=== PATIENT | female | born 1990 | race Caucasian/White ===

== ENCOUNTER 2018-09-11 11:33 | Inpatient (IN) | payer MEDICAID ==
[~2018-09-11] VITALS: Ht 180.3 cm; Wt 101.4 kg
[2018-09-11 11:46] VITALS: BP 117/68
[2018-09-11 12:20] VITALS: BP 117/68
[2018-09-11] MEDS ORDERED: MAGNESIUM SULF. PMX 20GM/500ML 500 ML IV ONE ×2 (12:59→19:54)
[2018-09-11] MEDS ORDERED: BETAMETHASONE 6 MG/ML, 5ML IM ONE (12:59)
[2018-09-11] MEDS ORDERED: MAGNESIUM SULFATE PMX 4GM/100M 100 ML IVPB SCH (13:00)
[2018-09-11] MEDS ORDERED: CALCIUM GLUCONATE 4.6 MEQ/10 ML IV PRN (13:00)
[2018-09-11] MEDS ORDERED: AMPICILLIN 2 GM in SODIUM CHLORIDE 0.9% 100 ML IVPB STA (13:08)
[2018-09-11] MEDS ORDERED: MAGNESIUM SULF. PMX 20GM/500ML 500 ML IV SCH ×2 (13:09→13:20)
[2018-09-11 13:10] LABS: MICROSCOPIC AUTO
[2018-09-11] MEDS: BETAMETHASONE 6 MG/ML, 5ML IM SCH (13:21)
[2018-09-11] MEDS ORDERED: MAGNESIUM SULFATE 6 GM in SODIUM CHLORIDE 0.9% 150 ML IV ONE (13:30)
[2018-09-11 14:03] LABS: BASOPHILS # (AUTO) 0.03 x10^3/uL (0-0.1); BASOPHILS % (AUTO) 0 % (0-1); EOSINOPHILS # (AUTO) 0.08 x10^3/uL (0-0.4); EOSINOPHILS % (AUTO) 1 % (1-7); LYMPHOCYTES # (AUTO) 1.78 x10^3/uL (1-3.4); LYMPHOCYTES % (AUTO) 20 % (22-44); MD NO; MEAN CORPUSCULAR HEMOGLOBIN 31.1 pg (27.0-34.8); MEAN CORPUSCULAR HGB CONC 33.9 g/dL (32.4-35.8); MEAN CORPUSCULAR VOLUME 91.8 fL (80-100); MEAN PLATELET VOLUME 8.1 fL (7.4-10.4); MONOCYTES # (AUTO) 0.55 x10^3/uL (0.2-0.8); MONOCYTES % (AUTO) 6 % (2-9); NEUTROPHILS # (AUTO) 6.39 x10^3/uL (1.8-6.8); NEUTROPHILS % (AUTO) 72 % (42-75); PLATELET COUNT 228 x10^3/uL (130-400); RED BLOOD COUNT 4.12 x10^6/uL (3.82-5.3); RED CELL DISTRIBUTION WIDTH 12.7 % (9.6-15.2)
[2018-09-11 14:13] LABS: ALANINE AMINOTRANSFERASE 24 U/L (12-78); ALBUMIN 2.7 g/dL (3.4-5.0); ANION GAP 9 mmol/L (5-15); CALCIUM 8.4 mg/dL (8.5-10.1); CHLORIDE 106 mmol/L (98-107); CREATININE 0.64 mg/dL (0.55-1.02)
[2018-09-11 14:15] LABS: ALKALINE PHOSPHATASE 102 U/L (45-117); BILIRUBIN,TOTAL 0.3 mg/dL (0.2-1.0); TOTAL PROTEIN 6.6 g/dL (6.4-8.2)
[2018-09-11 15:07] VITALS: BP 89/51
[2018-09-11] MEDS: AMPICILLIN 1 GM in SODIUM CHLORIDE 0.9% 100 ML IVPB SCH ×2 (17:28→21:43)
[2018-09-11] MEDS ORDERED: PRENATAL VIT/IRON/FA 1 EACH TABLET ONE (19:57)
[2018-09-11] MEDS ORDERED: DOCUSATE 100 MG CAPSULE ONE (19:57)
[2018-09-11] MEDS: PRENATAL VIT/IRON/FA 1 EACH TABLET PO SCH (20:24)
[2018-09-11] MEDS: MAGNESIUM SULF. PMX 20GM/500ML 500 ML IV SCH (20:28)
[2018-09-12] MEDS: LACTATED RINGERS 1,000 ML IV PRN ×2 (00:46→16:26)
[2018-09-12] MEDS: AMPICILLIN 1 GM in SODIUM CHLORIDE 0.9% 100 ML IVPB SCH ×6 (01:42→22:11)
[2018-09-12] MEDS ORDERED: MAGNESIUM SULF. PMX 20GM/500ML 500 ML IV ONE (06:31)
[2018-09-12] MEDS: MAGNESIUM SULF. PMX 20GM/500ML 500 ML IV SCH (06:40)
[2018-09-12 09:30] VITALS: BP 129/69
[2018-09-12] MEDS ORDERED: DOCUSATE 100 MG CAPSULE ONE ×3 (09:44→22:09)
[2018-09-12] MEDS ORDERED: PRENATAL VIT/IRON/FA 1 EACH TABLET ONE (09:44)
[2018-09-12] MEDS ORDERED: ACETAMINOPHEN 500 MG TABLET ONE (09:45)
[2018-09-12] MEDS: PRENATAL VIT/IRON/FA 1 EACH TABLET PO SCH (09:47)
[2018-09-12] MEDS: DOCUSATE 100 MG CAPSULE PO PRN ×2 (09:47→22:11)
[2018-09-12] MEDS ORDERED: ACETAMINOPHEN 500 MG TABLET PO PRN (10:00)
[2018-09-12] MEDS ORDERED: MAGNESIUM SULFATE PMX 4GM/100M 100 ML IVPB ONE (13:00)
[2018-09-12] MEDS: BETAMETHASONE 6 MG/ML, 5ML IM SCH (13:30)
[2018-09-12 20:00] VITALS: BP 117/67
[2018-09-13] MEDS: AMPICILLIN 1 GM in SODIUM CHLORIDE 0.9% 100 ML IVPB SCH ×3 (01:58→09:55)
[2018-09-13] MEDS ORDERED: MAGNESIUM SULF. PMX 20GM/500ML 500 ML IV ONE (02:33)
[2018-09-13] MEDS: LACTATED RINGERS 1,000 ML IV PRN (08:03)
[2018-09-13 08:30] VITALS: BP 102/57
[2018-09-13] MEDS ORDERED: PRENATAL VIT/IRON/FA 1 EACH TABLET ONE (09:46)
[2018-09-13] MEDS ORDERED: DOCUSATE 100 MG CAPSULE ONE ×2 (09:46→20:06)
[2018-09-13] MEDS: DOCUSATE 100 MG CAPSULE PO PRN ×2 (09:56→20:50)
[2018-09-13] MEDS: PRENATAL VIT/IRON/FA 1 EACH TABLET PO SCH (09:56)
[2018-09-13] MEDS ORDERED: MAGNESIUM SULF. PMX 20GM/500ML 500 ML IV SCH (12:59)
[2018-09-13 19:20] VITALS: BP 91/52
[2018-09-14 08:30] VITALS: BP 100/54
[2018-09-14] MEDS ORDERED: LACTATED RINGERS 1,000 ML IV SCH ×2 (13:19→22:30)
[2018-09-14] MEDS ORDERED: D5%-LACTATED RINGERS 1,000 ML IV SCH ×2 (13:19→22:30)
[2018-09-14] MEDS ORDERED: OXYTOCIN 30U/ 0.9% NaCL 500ML 500 ML IV ONE ×2 (13:19→22:30)
[2018-09-14] MEDS ORDERED: OXYTOCIN 30U/ 0.9% NaCL 500ML 500 ML ONE (13:29)
[2018-09-14] MEDS ORDERED: LIDOCAINE/PF 1%, 30ML ONE (13:29)
[2018-09-14] MEDS ORDERED: MISOPROSTOL 200 MCG TABLET ONE (13:29)
[2018-09-14] MEDS ORDERED: ONDANSETRON 2MG/ML, 2ML IVPush PRN (13:30)
[2018-09-14] MEDS ORDERED: TERBUTALINE 1 MG/ML, 1ML IVPush PRN (13:30)
[2018-09-14] MEDS ORDERED: FENTANYL PF 100 MCG/2ML IVPush PRN (13:30)
[2018-09-14] MEDS ORDERED: FENTANYL PF 100 MCG/2ML IV PRN (13:30)
[2018-09-14] MEDS ORDERED: CALCIUM CARBONATE 500 MG TAB.CHEW PO PRN (13:30)
[2018-09-14 13:48] LABS: BASOPHILS # (AUTO) 0.03 x10^3/uL (0-0.1); BASOPHILS % (AUTO) 0 % (0-1); EOSINOPHILS # (AUTO) 0.03 x10^3/uL (0-0.4); EOSINOPHILS % (AUTO) 0 % (1-7); LYMPHOCYTES # (AUTO) 1.78 x10^3/uL (1-3.4); LYMPHOCYTES % (AUTO) 20 % (22-44); MD NO; MEAN CORPUSCULAR HEMOGLOBIN 31.8 pg (27.0-34.8); MEAN CORPUSCULAR HGB CONC 34.1 g/dL (32.4-35.8); MEAN CORPUSCULAR VOLUME 93.3 fL (80-100); MEAN PLATELET VOLUME 7.9 fL (7.4-10.4); MONOCYTES # (AUTO) 0.79 x10^3/uL (0.2-0.8); MONOCYTES % (AUTO) 9 % (2-9); NEUTROPHILS # (AUTO) 6.26 x10^3/uL (1.8-6.8); NEUTROPHILS % (AUTO) 70 % (42-75); PLATELET COUNT 246 x10^3/uL (130-400); RED BLOOD COUNT 3.95 x10^6/uL (3.82-5.3); RED CELL DISTRIBUTION WIDTH 13.3 % (9.6-15.2)
[2018-09-14] MEDS ORDERED: SODIUM CITRATE/CITRIC ACID 30 ML UDC PO PRN (22:30)
[2018-09-14] MEDS ORDERED: ALUMINUM/MAG/SIMETHICONE 30 ML UDC PO PRN (22:30)
[2018-09-14] MEDS ORDERED: METOCLOPRAMIDE 5 MG/ML, 2ML IVPush PRN (22:30)
[2018-09-14 22:56] VITALS: BP 92/58
[2018-09-15 08:02] VITALS: BP 103/58
[2018-09-15] MEDS ORDERED: PREN1TAB60 PO (08:14)
[2018-09-15] MEDS ORDERED: OXYTOCIN 30U/ 0.9% NaCL 500ML 500 ML ONE (19:54)
[2018-09-16 07:50] VITALS: BP 117/69
[2018-09-16] MEDS ORDERED: PRENATAL VIT/IRON/FA 1 EACH TABLET ONE (08:00)
[2018-09-16] MEDS: SODIUM CHLORIDE FLUSH 3ML SYRINGE IVF SCH ×2 (08:24→21:00)
[2018-09-16] MEDS: PRENATAL VIT/IRON/FA 1 EACH TABLET PO SCH (08:24)
[2018-09-17 05:01] VITALS: BP 95/65
[2018-09-17 05:19] LABS: BASOPHILS # (AUTO) 0.02 x10^3/uL (0-0.1); BASOPHILS % (AUTO) 0 % (0-1); EOSINOPHILS # (AUTO) 0.13 x10^3/uL (0-0.4); EOSINOPHILS % (AUTO) 2 % (1-7); LYMPHOCYTES # (AUTO) 1.89 x10^3/uL (1-3.4); LYMPHOCYTES % (AUTO) 22 % (22-44); MD NO; MEAN CORPUSCULAR HEMOGLOBIN 30.8 pg (27.0-34.8); MEAN CORPUSCULAR HGB CONC 33.2 g/dL (32.4-35.8); MEAN CORPUSCULAR VOLUME 92.8 fL (80-100); MEAN PLATELET VOLUME 7.8 fL (7.4-10.4); MONOCYTES # (AUTO) 0.53 x10^3/uL (0.2-0.8); MONOCYTES % (AUTO) 6 % (2-9); NEUTROPHILS # (AUTO) 6.07 x10^3/uL (1.8-6.8); NEUTROPHILS % (AUTO) 70 % (42-75); PLATELET COUNT 236 x10^3/uL (130-400); RED BLOOD COUNT 4.05 x10^6/uL (3.82-5.3); RED CELL DISTRIBUTION WIDTH 12.9 % (9.6-15.2)
[2018-09-17 08:10] VITALS: BP 119/59
[2018-09-17] MEDS ORDERED: PRENATAL VIT/IRON/FA 1 EACH TABLET ONE (08:22)
[2018-09-17] MEDS: PRENATAL VIT/IRON/FA 1 EACH TABLET PO SCH ×2 (08:27→09:00)
[2018-09-17] MEDS: SODIUM CHLORIDE FLUSH 3ML SYRINGE IVF SCH ×2 (08:29→21:00)
[2018-09-17] MEDS ORDERED: DOCUSATE 100 MG CAPSULE ONE (22:07)
[2018-09-17] MEDS: DOCUSATE 100 MG CAPSULE PO PRN (22:08)
[2018-09-18] MEDS ORDERED: PRENATAL VIT/IRON/FA 1 EACH TABLET ONE (07:55)
[2018-09-18] MEDS ORDERED: DOCUSATE 100 MG CAPSULE ONE ×2 (07:55→19:43)
[2018-09-18] MEDS: DOCUSATE 100 MG CAPSULE PO PRN ×2 (07:57→20:10)
[2018-09-18] MEDS: PRENATAL VIT/IRON/FA 1 EACH TABLET PO SCH (07:57)
[2018-09-18] MEDS: SODIUM CHLORIDE FLUSH 3ML SYRINGE IVF SCH ×2 (07:58→20:08)
[2018-09-18 19:29] VITALS: BP 129/70
[2018-09-19] MEDS ORDERED: DOCUSATE 100 MG CAPSULE ONE ×2 (07:59→19:41)
[2018-09-19] MEDS ORDERED: PRENATAL VIT/IRON/FA 1 EACH TABLET ONE (07:59)
[2018-09-19] MEDS: PRENATAL VIT/IRON/FA 1 EACH TABLET PO SCH (08:01)
[2018-09-19] MEDS: DOCUSATE 100 MG CAPSULE PO PRN ×2 (08:01→19:42)
[2018-09-19] MEDS: SODIUM CHLORIDE FLUSH 3ML SYRINGE IVF SCH ×2 (08:01→19:44)
[2018-09-19 19:42] VITALS: BP 111/59
[2018-09-20] MEDS: SODIUM CHLORIDE FLUSH 3ML SYRINGE IVF SCH ×3 (09:03→20:00)
[2018-09-20 09:30] VITALS: BP 124/66
[2018-09-20] MEDS ORDERED: DOCUSATE 100 MG CAPSULE ONE (09:38)
[2018-09-20] MEDS ORDERED: PRENATAL VIT/IRON/FA 1 EACH TABLET ONE (09:38)
[2018-09-20] MEDS: PRENATAL VIT/IRON/FA 1 EACH TABLET PO SCH (09:40)
[2018-09-20] MEDS: DOCUSATE 100 MG CAPSULE PO PRN ×2 (09:40→20:04)
[2018-09-20 20:00] VITALS: BP 117/56
[2018-09-21] MEDS ORDERED: METHYLERGONOVINE 0.2 MG/ML IM ONE ×2 (02:37→15:57)
[2018-09-21] MEDS ORDERED: NEWBORN KIT ONE (02:37)
[2018-09-21] MEDS ORDERED: SODIUM BICARBONATE 1 MEQ/ML, 50ML VIAL ONE (02:57)
[2018-09-21] MEDS ORDERED: CEFAZOLIN 1,000 MG ONE (02:57)
[2018-09-21] MEDS ORDERED: EPHEDRINE 50 MG/ML, 1ML ONE (02:57)
[2018-09-21] MEDS ORDERED: PHENYLEPHRINE 10 MG/ML ONE (02:57)
[2018-09-21] MEDS ORDERED: KETOROLAC 30 MG/1 ML ONE (02:57)
[2018-09-21] MEDS ORDERED: DEXAMETHASONE 4 MG/ML, 1ML ONE (02:57)
[2018-09-21] MEDS ORDERED: ONDANSETRON 2MG/ML, 2ML ONE (02:57)
[2018-09-21] MEDS ORDERED: FENTANYL PF 100 MCG/2ML ONE ×2 (02:57→02:58)
[2018-09-21] MEDS ORDERED: OXYTOCIN 10 UNITS/ML, 1ML ONE (02:57)
[2018-09-21] MEDS: OXYTOCIN 30U/ 0.9% NaCL 500ML 500 ML IV SCH ×3 (03:40→23:40)
[2018-09-21] MEDS ORDERED: RHOGAM FROM BLOOD BANK 1 NOTE EA IM/IV ONE (04:00)
[2018-09-21] MEDS ORDERED: ONDANSETRON 2MG/ML, 2ML IVPush PRN (04:00)
[2018-09-21] MEDS ORDERED: DIPH,PERTUSS(ACELL),TET VAC/PF NC IM-VACC PRN (04:00)
[2018-09-21] MEDS ORDERED: HYDROmorphone 1 MG/ML, 1ML IV PRN (04:00)
[2018-09-21] MEDS ORDERED: OXYcodone 5 MG/5 ML ORAL.SOL UDC PO PRN (04:00)
[2018-09-21] MEDS ORDERED: MAGNESIUM HYDROXIDE 8%, 30ML UDC PO PRN (04:00)
[2018-09-21] MEDS ORDERED: ONDANSETRON 2MG/ML, 2ML IV PRN (04:00)
[2018-09-21] MEDS ORDERED: hydrALAzine 20 MG/ML, 1ML IV PRN (04:00)
[2018-09-21] MEDS ORDERED: LABETALOL 5MG/ML, 20ML IV PRN (04:00)
[2018-09-21] MEDS ORDERED: MEASLES,MUMPS&RUBELLA VACC/PF 0.5 ML SQ PRN (04:00)
[2018-09-21] MEDS ORDERED: CARBOPROST TROMETHAMINE 250 MCG/ML, 1ML IM PRN (04:00)
[2018-09-21] MEDS ORDERED: HYDROcodone/APAP 7.5-325MG/15ML UDC PO PRN (04:00)
[2018-09-21] MEDS ORDERED: MEPERIDINE/PF 25MG/0.5ML IVPush PRN (04:00)
[2018-09-21] MEDS ORDERED: OXYcodone/APAP 5/325MG TABLET PO PRN (04:00)
[2018-09-21] MEDS ORDERED: CALCIUM CARBONATE 500 MG TAB.CHEW PO PRN (04:00)
[2018-09-21] MEDS ORDERED: ALBUTEROL SULFATE 2.5 MG/3 ML NPPB PRN (04:00)
[2018-09-21] MEDS ORDERED: EPHEDRINE 50 MG/ML, 1ML IVPush PRN (04:00)
[2018-09-21] MEDS ORDERED: PROMETHAZINE 25 MG/ML, 1ML IV PRN (04:00)
[2018-09-21] MEDS ORDERED: MIDAZOLAM 1 MG/ML, 2ML IV PRN (04:00)
[2018-09-21] MEDS ORDERED: FENTANYL PF 100 MCG/2ML IV PRN (04:00)
[2018-09-21] MEDS ORDERED: OXYcodone IR 5MG TABLET PO PRN (04:00)
[2018-09-21 04:47] LABS: BASOPHILS % (AUTO) 0 % (0-1); EOSINOPHILS # (AUTO) 0.04 x10^3/uL (0-0.4); EOSINOPHILS % (AUTO) 0 % (1-7); LYMPHOCYTES # (AUTO) 1.22 x10^3/uL (1-3.4); LYMPHOCYTES % (AUTO) 7 % (22-44); MD NO; MEAN CORPUSCULAR HGB CONC 34.3 g/dL (32.4-35.8); MEAN CORPUSCULAR VOLUME 93.4 fL (80-100); MEAN PLATELET VOLUME 7.8 fL (7.4-10.4); MONOCYTES % (AUTO) 4 % (2-9); NEUTROPHILS # (AUTO) 15.55 x10^3/uL (1.8-6.8); NEUTROPHILS % (AUTO) 89 % (42-75); PLATELET COUNT 201 x10^3/uL (130-400); RED BLOOD COUNT 3.82 x10^6/uL (3.82-5.3); RED CELL DISTRIBUTION WIDTH 12.9 % (9.6-15.2)
[2018-09-21 07:35] VITALS: BP 113/77
[2018-09-21] MEDS: PRENATAL VIT/IRON/FA 1 EACH TABLET PO SCH ×2 (09:00→09:43)
[2018-09-21] MEDS: SODIUM CHLORIDE FLUSH 3ML SYRINGE IVF SCH (09:00)
[2018-09-21] MEDS: DOCUSATE 100 MG CAPSULE PO PRN (09:42)
[2018-09-21] MEDS: IBUPROFEN 600 MG TABLET PO PRN ×2 (09:42→16:59)
[2018-09-21 10:30] LABS: MD YES; MEAN CORPUSCULAR HGB CONC 34.5 g/dL (32.4-35.8); MEAN CORPUSCULAR VOLUME 92.9 fL (80-100); MEAN PLATELET VOLUME 7.8 fL (7.4-10.4); PLATELET COUNT 245 x10^3/uL (130-400); RED CELL DISTRIBUTION WIDTH 12.9 % (9.6-15.2)
[2018-09-21 10:56] LABS: <PLATELET ESTIMATE> ADEQUATE; <PLT MORPHOLOGY> NORMAL PLT MORPH; <RBC MORPHOLOGY> NORMAL; BAND#(MANUAL) 0.61 x10^3/uL; BANDS%(MANUAL) 3 % (0-7); LYMPH#(MANUAL) 2.42 x10^3/uL (1-3.4); LYMPHS% (MANUAL) 12 % (22-44); MONOS#(MANUAL) 0.61 x10^3/uL (0.3-2.7); MONOS% (MANUAL) 3 % (2-9); SEG#(MANUAL) 16.56 x10^3/uL (1.8-6.8); SEGS% (MANUAL) 82 % (42-75)
[2018-09-21 11:58] VITALS: BP 106/72
[2018-09-21 16:00] VITALS: BP 114/68
[2018-09-21 20:00] VITALS: BP 106/71
[2018-09-22 00:01] VITALS: BP 106/68
[2018-09-22] MEDS: OXYTOCIN 30U/ 0.9% NaCL 500ML 500 ML IV SCH (00:16)
[2018-09-22 07:30] VITALS: BP 114/74
[2018-09-22] MEDS: DOCUSATE 100 MG CAPSULE PO PRN (08:06)
[2018-09-22] MEDS: IBUPROFEN 600 MG TABLET PO PRN ×2 (08:06→16:07)
[2018-09-22] MEDS: PRENATAL VIT/IRON/FA 1 EACH TABLET PO SCH (08:06)
[2018-09-22 09:18] LABS: MEAN CORPUSCULAR HEMOGLOBIN 31.3 pg (27.0-34.8); MEAN CORPUSCULAR HGB CONC 33.9 g/dL (32.4-35.8); MEAN CORPUSCULAR VOLUME 92.2 fL (80-100); MEAN PLATELET VOLUME 7.8 fL (7.4-10.4); PLATELET COUNT 206 x10^3/uL (130-400); RED BLOOD COUNT 3.02 x10^6/uL (3.82-5.3)
[2018-09-22 09:35] LABS: BASOPHILS # (AUTO) 0.03 x10^3/uL (0-0.1); BASOPHILS % (AUTO) 0 % (0-1); EOSINOPHILS # (AUTO) 0.07 x10^3/uL (0-0.4); EOSINOPHILS % (AUTO) 1 % (1-7); LYMPHOCYTES # (AUTO) 2.47 x10^3/uL (1-3.4); LYMPHOCYTES % (AUTO) 21 % (22-44); MD SCAN; MONOCYTES % (AUTO) 6 % (2-9); NEUTROPHILS # (AUTO) 8.29 x10^3/uL (1.8-6.8); NEUTROPHILS % (AUTO) 72 % (42-75)
[2018-09-22] MEDS ORDERED: IBUP-1222 PO (12:33)
[2018-09-22 20:30] VITALS: BP 107/72
[2018-09-23] MEDS: OXYTOCIN 30U/ 0.9% NaCL 500ML 500 ML IV SCH ×2 (05:40→15:40)
[2018-09-23] MEDS: IBUPROFEN 600 MG TABLET PO PRN ×2 (07:27→17:36)
[2018-09-23] MEDS: DOCUSATE 100 MG CAPSULE PO PRN (07:28)
[2018-09-23] MEDS: PRENATAL VIT/IRON/FA 1 EACH TABLET PO SCH (07:28)
[2018-09-23 07:36] VITALS: BP 102/65
== END 2018-09-23 18:15 | disposition home or self-care (01) | DRG 806 ==
LOC: LDOP 11:33 → LDIP 13:01 → 2NW 09-21 05:23
PROVIDERS: ADMIT Obstetrics & Gynecology; ATTEND Obstetrics & Gynecology
PROC: 10E0XZZ Delivery of Products of Conception, External Approach (ICD-10-PCS; principal; 2018-09-21)
PROC: 0KQM0ZZ Repair Perineum Muscle, Open Approach (ICD-10-PCS; 2018-09-21)
PROC: 10D17Z9 Manual Extraction of Products of Conception, Retained, Via Natural or Artificial Opening (ICD-10-PCS; 2018-09-21)
PROC: 0UQMXZZ Repair Vulva, External Approach (ICD-10-PCS; 2018-09-21)
DX: O60.14X0 Preterm labor third trimester with preterm delivery third trimester, not applicable or unspecified (principal); D62 Acute posthemorrhagic anemia; Z37.0 Single live birth; O72.0 Third-stage hemorrhage; O70.1 Second degree perineal laceration during delivery; O71.82 Other specified trauma to perineum and vulva; Z3A.33 33 weeks gestation of pregnancy; Z83.3 Family history of diabetes mellitus; O90.81 Anemia of the puerperium; D50.9 Iron deficiency anemia, unspecified
CPT/HCPCS: 36415; 76815; 80053; 81001; 82803; 83735; 85025; 86850; 86900; 86923; 87081; 87086; 88305; G0378; J0290; J0690; J0702; J1100; J1885; J2405; J3010; J3475; J2210; J2370; J2590; J7120